=== PATIENT | male | born 1965 | race Caucasian/White ===

== ENCOUNTER 2016-09-12 20:20 | Inpatient (IN) | payer MEDICAID ==
[~2016-09-12] VITALS: Ht 185.4 cm; Wt 65.7 kg
[2016-09-12 21:15] LABS: Basophils # (auto) 0.1 uL; Basophils % (auto) 0.6 % (0.0-2.0); CONDITION Y; Eosinophils # (auto) 0 uL; Eosinophils % (auto) 0.2 % (0.0-7.0); Hematocrit 40.7 % (41.0-53.0); Hemoglobin 13.9 g/dL (13.5-17.5); Lymphocytes # (auto) 2.6 uL; Lymphocytes % (auto) 21.6 % (10.0-50.0); Mean Corpuscular Hemoglobin 32.3 pg (28.0-32.0); Mean Corpuscular Hgb Conc. 34.2 g/dL (32.0-36.0); Mean Corpuscular Volume 94.6 fL (80.0-100.0); Mean Platelet Volume 8.2 fL (7.4-10.4); Monocytes # (auto) 1.2 uL; Monocytes % (auto) 9.9 % (0.0-12.0); Neutrophils # (auto) 8.2 uL; Neutrophils % (auto) 67.7 % (37.0-80.0); Platelet Count (auto) 197 10^3/uL (140-450); White Blood Cell 12.1 10^3/uL (4.4-10.8)
[2016-09-12 21:31] LABS: INR 1.06 (0.9-1.15); Partial Thromboplastin Time 24.5 sec (22.64-33.71); Prothrombin Time 11.6 sec (9.37-12.3)
[2016-09-12 21:44] LABS: Albumin 3.8 g/dL (3.4-5.0); Calcium 8.8 mg/dL (8.5-10.1); Potassium 3.2 mmol/L (3.5-5.1)
[2016-09-12 21:46] LABS: BUN/Creatinine Ratio 35.4
[2016-09-12 22:02] LABS: Bilirubin, Total 2.6 mg/dL (0.2-1.0); Total Protein 8.1 g/dL (6.4-8.2)
[2016-09-12 22:04] LABS: B-Type Natriuretic Peptide 19.21 pg/mL (0-100)
[2016-09-12 22:07] LABS: Temperature: 23.1 C (20.0-25.0)
[2016-09-12 23:18] LABS: Urine Bilirubin Negative (Negative); Urine Blood Negative /uL (Negative); Urine Color Yellow (Yellow); Urine Glucose Normal (Normal); Urine Ketone TRACE (Negative); Urine Nitrite Negative (Negative); Urine RBC 1 /hpf (0 - 3); Urine Urobilinogen Normal (Negative)
[2016-09-12] MEDS ORDERED: SODIUM CHLORIDE 0.9% 1,000 ML IV ONE (23:30)
[2016-09-13] MEDS ORDERED: SODIUM CHLORIDE 0.9% 1,000 ML IV SCH (02:56)
[2016-09-13] MEDS ORDERED: PANTOPRAZOLE SODIUM 40 MG/10 ML VIAL IV ONE (03:00)
[2016-09-13] MEDS ORDERED: ACETAMINOPHEN 325 MG TAB PO PRN (03:00)
[2016-09-13] MEDS ORDERED: POTASSIUM CHL 20 Meq TABLET PO ONE (03:00)
[2016-09-13] MEDS ORDERED: HYDROcodone-ACET 5/325MG TAB PO PRN (03:00)
[2016-09-13] MEDS ORDERED: ONDANSETRON HCL 4 MG/2 ML VIAL IV PRN (03:00)
[2016-09-13 03:34] LABS: Hematocrit 35.1 % (41.0-53.0)
[2016-09-13 09:11] VITALS: BP 128/72
[2016-09-13] MEDS ORDERED: OCTREOTIDE ACETATE 500 MCG in SODIUM CHL 0.9% 99 ML IV SCH (09:45)
[2016-09-13] MEDS ORDERED: OCTREOTIDE ACETATE 100 MCG in SODIUM CHL 0.9% 50 ML IV ONE (09:45)
[2016-09-13] MEDS ORDERED: THIAMINE HCL 100 MG TAB PO SCH (10:00)
[2016-09-13] MEDS ORDERED: PANTOPRAZOLE SODIUM 40 MG/10 ML VIAL IV SCH ×2 (10:00)
[2016-09-13] MEDS ORDERED: FOLIC ACID 1 MG TAB PO SCH (10:00)
[2016-09-13] MEDS ORDERED: LIDOCAINE VISCOUS 2% 15ML UD ONE (10:46)
[2016-09-13] MEDS ORDERED: SODIUM CHLORIDE LOCK 10 ML ONE (10:46)
[2016-09-13] MEDS ORDERED: diphenhdrAMINE HCL 50 MG/1 ML VL ONE (10:47)
[2016-09-13] MEDS: MIDAZOLAM HCL 5 MG/ML-1ML VIAL ONE ×2 (10:52→10:55)
[2016-09-13] MEDS: fentaNYL CITRATE 100 MCG/2 ML VL ONE ×2 (10:52→10:55)
[2016-09-13 12:52] VITALS: BP 128/70
[2016-09-13 16:13] VITALS: BP 128/70
[2016-09-13 16:20] VITALS: BP 144/72
[2016-09-13] MEDS ORDERED: PANTOPRAZOLE 40 MG TAB PO SCH (22:00)
== END 2016-09-13 17:29 | disposition home or self-care (01) | DRG 241 ==
LOC: ER 20:20 → OVERFLOW 20:21 → EAST 09-13 08:06 → WEST WING 09-13 12:30
PROVIDERS: ADMIT Internal Medicine; ATTEND Hospitalist
PROC: 0DJ08ZZ Inspection of Upper Intestinal Tract, Via Natural or Artificial Opening Endoscopic (ICD-10-PCS; principal; 2016-09-13 10:50)
DX: K29.60 Other gastritis without bleeding (principal); K76.6 Portal hypertension; K70.30 Alcoholic cirrhosis of liver without ascites; J44.9 Chronic obstructive pulmonary disease, unspecified; K31.89 Other diseases of stomach and duodenum; K27.9 Peptic ulcer, site unspecified, unspecified as acute or chronic, without hemorrhage or perforation; F17.210 Nicotine dependence, cigarettes, uncomplicated; K76.0 Fatty (change of) liver, not elsewhere classified; K80.20 Calculus of gallbladder without cholecystitis without obstruction; M47.9 Spondylosis, unspecified; Z82.49 Family history of ischemic heart disease and other diseases of the circulatory system; Z59.0 Homelessness; Z87.11 Personal history of peptic ulcer disease; Z83.6 Family history of other diseases of the respiratory system; Z71.9 Counseling, unspecified
CPT/HCPCS: 36415; 43235; 74176; 76705; 80053; 80307; 80320; 81001; 82270; 83880; 84484; 85014; 85018; 85025; 85610; 85730; 86850; 86900; 86901; 93005; 96361; 96374; C9113; J2250

== ENCOUNTER 2020-01-30 09:28 | Emergency (ER) | payer MEDICAID ==
[~2020-01-30] VITALS: Ht 180.3 cm; Wt 68.0 kg
[2020-01-30 09:37] VITALS: BP 160/89
== END 2020-01-30 09:52 | disposition home or self-care (01) ==
LOC: ER 09:28
DX: B35.4 Tinea corporis (principal); J44.9 Chronic obstructive pulmonary disease, unspecified; F17.210 Nicotine dependence, cigarettes, uncomplicated; F10.10 Alcohol abuse, uncomplicated; Z59.0 Homelessness; Z87.11 Personal history of peptic ulcer disease

== ENCOUNTER 2021-06-12 16:25 | Emergency (ER) | payer MEDICAID ==
[~2021-06-12] VITALS: Ht 177.8 cm; Wt 68.0 kg
[2021-06-12 20:26] VITALS: BP 136/81
[2021-06-12] MEDS ORDERED: CEPH-509 PO (20:33)
== END 2021-06-12 20:34 | disposition home or self-care (01) ==
LOC: ER 16:25
DX: S62.625B Displaced fracture of middle phalanx of left ring finger, initial encounter for open fracture (principal); S61.217A Laceration without foreign body of left little finger without damage to nail, initial encounter; J44.9 Chronic obstructive pulmonary disease, unspecified; F17.210 Nicotine dependence, cigarettes, uncomplicated; Z86.2 Personal history of diseases of the blood and blood-forming organs and certain disorders involving the immune mechanism; W23.0XXA Caught, crushed, jammed, or pinched between moving objects, initial encounter; Y93.89 Activity, other specified; Y92.89 Other specified places as the place of occurrence of the external cause; Y99.8 Other external cause status
CPT/HCPCS: 12002; 73140; 99283; J2001